=== PATIENT | male | born 1960 | race Caucasian/White ===

== ENCOUNTER → 2017-02-26 | Day surgery (SDC) | payer BC ==
[~2017-02-26] MED LIST: Lactated Ringers 1,000 ML IV SCH; Lidocaine 1%/Sod Bicarbonate in NS 8.4% 1 ML Syringe PRN; Propofol 200 MG/20 ML SDV ONE; Sodium Chloride 0.9% 10 ML Syringe FLUSH PRN
--- NOTE | 2017-02-26 08:19 | PCM.PREANE ---
Preanesthetic Assessment - Review of Systems General: No Symptoms Pulmonary: Other (History of sleep apnea, resolved. ) Cardiovascular: Other (Negative Stress Test, was told his chest pain was related to anxiety.) Gastrointestinal: Other (GERD) Neurological: Other (Restless Leg Syndrome) Other: Reports: Anxiety - Physical Assessment NPO Status Date: 02/25/17 NPO Status Time: 21:30 Pulse: 77 O2 Sat by Pulse Oximetry: 97 Respiratory Rate: 16 Blood Pressure: 141/89 Temperature: 36.1 C Weight: 126 kg ASA Class: 2 Mental Status: Alert & Oriented x3 Airway Class: Mallampati = 1 Dentition: Reports: Normal Dentition Thyro-Mental Finger Breadths: 3 Mouth Opening Finger Breadths: 3 ROM/Head Extension: Full Lungs: Clear to Auscultation, Normal Respiratory Effort Cardiovascular: Regular Rate, Regular Rhythm - Allergies Allergies/Adverse Reactions: Allergies Allergy/AdvReac Type Severity Reaction Status Date / Time amoxicillin Allergy Hives Verified 02/25/17 09:07 sulfamethoxazole Allergy Cannot Verified 02/25/17 09:07 [From Bactrim] Remember trimethoprim [From Bactrim] Allergy Cannot Verified 02/25/17 09:07 Remember - Acknowledgements Anesthesia Type Planned: MAC Pt an Appropriate Candidate for the Planned Anesthesia: Yes Alternatives and Risks of Anesthesia Discussed w Pt/Guardian: Yes Pt/Guardian Understands and Agrees with Anesthesia Plan: Yes PreAnesthesia Questionnaire HEENT History: Reports: None Cardiovascular History: Reports: Hypertension Respiratory History: Reports: Sleep Apnea Gastrointestinal History: Reports: GERD Genitourinary History: Reports: None 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 Musculoskeletal History: Reports: None Neurological History: Reports: None Psychiatric History: Reports: None Endocrine/Metabolic History: Reports: None Hematologic History: Reports: None Immunologic History: Reports: None Oncologic (Cancer) History: Reports: None Dermatologic History: Reports: None - Past Surgical History Head Surgeries/Procedures: Reports: None HEENT Surgical History: Reports: None Cardiovascular Surgical History: Reports: None Respiratory Surgical History: Reports: None GI Surgical History: Reports: Bariatric Procedure Male Surgical History: Reports: Vasectomy Endocrine Surgical History: Reports: None Neurological Surgical History: Reports: None Musculoskeletal Surgical History: Reports: None Dermatological Surgical History: Reports: None - SUBSTANCE USE Smoking Status *Q: Never Smoker Recreational Drug Use History: No - HOME MEDS Home Medications: Home Meds Cholecalciferol (Vitamin D3) [Vitamin D3] 400 units PO DAILY 02/25/17 [History] Cyanocobalamin (Vitamin B-12) [Vitamin B-12] 500 mcg SL DAILY 02/25/17 [History] Cyanocobalamin/FA/Pyridoxine [Folbee] 1 tab PO DAILY 02/25/17 [History] Lisinopril/Hydrochlorothiazide [Lisinopril-Hctz 20-25 mg Tab] 1 tab PO DAILY 03/02 [History] Multivitamin [Daily Nick] 1 tab PO DAILY 02/25/17 [History] - CURRENT (IN HOUSE) MEDS Current Meds: Current Medications Lactated Ringer's (Ringers, Lactated) 1,000 mls @ 125 mls/hr IV ASDIRECTED YANET Stop: 02/26/17 23:00 Lidocaine/Sodium Bicarbonate (Buffered Lidocaine 1% In Ns 8.4%) 0.25 ml .XX ONETIME PRN PRN Reason: Prior to IV Start Stop: 02/26/17 18:00 Sodium Chloride (Saline Flush) 10 ml FLUSH ASDIRECTED PRN PRN Reason: Keep Vein Open Stop: 02/26/17 18:00
--- NOTE | 2017-02-26 08:48 | PCM.OPNOTE ---
- General Post-Op/Procedure Note Date of Surgery/Procedure: 02/26/17 Operative Procedure(s): Esophagogastroduodenoscopy eith GE junction and gastric biopsies Findings: Endoscopic esophagitis but no marginal ulcer or gastritis, no stricturing at the anastomosis Pre Op Diagnosis: Dyspepsia status post gastric bypass Post-Op Diagnosis: Endoscopic esophagitis Anesthesia Technique: MAC, Moderate Sedation Primary Surgeon: Jeb Vasques Pathology: GE junction and gastric biopsies EBL in mLs: 0 Complications: None Condition: Good Free Text/Narrative:: After adequate IV sedation and analgesia was obtained the patient was placed on his left side with monitoring. Through a bite block a lubricated upper endoscope was inserted into the esophagus and advanced under direct vision to the stomach. The pouch from the gastric bypass was visualized. I carefully checked the anastomosis and there was no stricturing. On the distal side there was no marginal ulcer seen. The pouch was without ulcers or erosions. There was no gross inflammatory changes. There was some mild inflammation at the GE junction. I biopsied the GE junction and the body of the stomach for histologic evaluation. The body of the esophagus was unremarkable. The vocal cords were grossly normal. Outside Deliverer photographs were taken for the patient and for the medical record.
--- NOTE | 2017-02-26 08:50 | PCM48HPAN ---
Post Anesthesia Note - EVALUATION WITHIN 48HRS OF ANESTHETIC Vital Signs in Normal Range: Yes Patient Participated in Evaluation: Yes Respiratory Function Stable: Yes Airway Patent: Yes Cardiovascular Function Stable: Yes Hydration Status Stable: Yes Pain Control Satisfactory: Yes Nausea and Vomiting Control Satisfactory: Yes Mental Status Recovered: Yes
[2017-02-26 09:32] VITALS: BP 120/82
== END | disposition home or self-care (01) ==
LOC: JD.SDS 07:54
PROVIDERS: ATTEND Surgery
DX: K29.50 Unspecified chronic gastritis without bleeding (principal); K21.0 Gastro-esophageal reflux disease with esophagitis; I10 Essential (primary) hypertension; Z88.1 Allergy status to other antibiotic agents; Z88.2 Allergy status to sulfonamides; Z79.899 Other long term (current) drug therapy; Z98.84 Bariatric surgery status
CPT/HCPCS: 43239; J7120; 00740; J2704

== ENCOUNTER 2017-05-12 16:22 | Emergency (ER) | payer BC ==
[2017-05-12 16:39] VITALS: BP 125/84
--- NOTE | 2017-05-12 18:30 | EDM.PDOC ---
ED HPI GENERAL MEDICAL PROBLEM - General Chief Complaint: Lower Extremity Injury/Pain Stated Complaint: NUMBNESS AND PAIN IN R LEG ABOVE KNEE Time Seen by Provider: 05/12/17 16:37 Source of Information: Reports: Patient History Limitations: Reports: No Limitations - History of Present Illness INITIAL COMMENTS - FREE TEXT/NARRATIVE: The patient presents with numbness to the right anterior thigh. This started this weekend and today he got pain there. He has never had this before. He has no weakness. He had no injury. He was just playing with his grandchildren when this started. He has no fever, chills, cough, congestion or runny nose. He has no chest pain, shortness of breath, abdominal pain, nausea or vomiting. He does not sit for a long time at work. The pain is gone now but he has numbness to his thigh still. The patient has a history of a DVT years ago in the left leg after an injury. Onset: Gradual Duration: Day(s): Quality: Reports: Sharp Severity: Moderate Improves with: Reports: None Worsens with: Reports: None Associated Symptoms: Reports: No Other Symptoms - Related Data Allergies Allergy/AdvReac Type Severity Reaction Status Date / Time amoxicillin Allergy Hives Verified 05/12/17 16:33 sulfamethoxazole Allergy Cannot Verified 05/12/17 16:33 [From Bactrim] Remember trimethoprim [From Bactrim] Allergy Cannot Verified 05/12/17 16:33 Remember Home Meds: Home Meds Cholecalciferol (Vitamin D3) [Vitamin D3] 400 units PO DAILY 02/25/17 [History] Cyanocobalamin (Vitamin B-12) [Vitamin B-12] 500 mcg SL DAILY 02/25/17 [History] Cyanocobalamin/FA/Pyridoxine [Folbee] 1 tab PO DAILY 02/25/17 [History] Lisinopril/Hydrochlorothiazide [Lisinopril-Hctz 20-25 mg Tab] 1 tab PO DAILY 03/02 [History] Multivitamin [Daily Nick] 1 tab PO DAILY 02/25/17 [History] Past Medical History HEENT History: Reports: None Cardiovascular History: Reports: Hypertension Respiratory History: Reports: Sleep Apnea Gastrointestinal History: Reports: GERD Genitourinary History: Reports: None [employer] History: Reports: None Musculoskeletal History: Reports: None Neurological History: Reports: None Psychiatric History: Reports: None Endocrine/Metabolic History: Reports: None Hematologic History: Reports: None Immunologic History: Reports: None Oncologic (Cancer) History: Reports: None Dermatologic History: Reports: None - Past Surgical History Head Surgeries/Procedures: Reports: None HEENT Surgical History: Reports: None Cardiovascular Surgical History: Reports: None Respiratory Surgical History: Reports: None GI Surgical History: Reports: Bariatric Procedure Male Surgical History: Reports: Vasectomy Endocrine Surgical History: Reports: None Neurological Surgical History: Reports: None Musculoskeletal Surgical History: Reports: None Dermatological Surgical History: Reports: None Social & Family History - Tobacco Use Smoking Status *Q: Never Smoker - Caffeine Use Caffeine Use: Reports: Soda - Recreational Drug Use Recreational Drug Use: No Drug Use in Last 12 Months: No Review of Systems - Review of Systems Review Of Systems: See Below Constitutional: Reports: No Symptoms Eyes: Reports: No Symptoms Ears: Reports: No Symptoms Nose: Reports: No Symptoms Mouth/Throat: Reports: No Symptoms Respiratory: Reports: No Symptoms Cardiovascular: Reports: No Symptoms GI/Abdominal: Reports: No Symptoms Genitourinary: Reports: No Symptoms Musculoskeletal: Reports: Other (Tingling and numbness to the anterior right thigh) ED EXAM, GENERAL - Physical Exam Exam: See Below Exam Limited By: No Limitations General Appearance: Alert, No Apparent Distress Ears: Normal External Exam Nose: Normal Inspection Head: Atraumatic, Normocephalic Neck: Normal Inspection Respiratory/Chest: No Respiratory Distress, Lungs Clear, Normal Breath Sounds Cardiovascular: Regular Rate, Rhythm, No Edema, No Murmur GI/Abdominal: Soft, Non-Tender, No Organomegaly, No Mass Back Exam: Normal Inspection Extremities: Other (Numbness to the anterior right thigh. Good pulses distally. Equal strenght bilaterally to both legs.) Course - Vital Signs Last Recorded V/S: Last Vital Signs Temp 98.0 F 05/12/17 16:36 Pulse 76 05/12/17 16:36 Resp 16 05/12/17 16:36 BP 125/84 05/12/17 16:36 Pulse Ox 98 05/12/17 16:36 - Orders/Labs/Meds Orders: Active Orders 24 hr Category Date Time Status Cardiac Monitoring [RC] . DIRECTED Care 05/12/17 17:04 Active VL Duplex Lwr Ext Veins Ltd Rt [US] Stat Exams 05/12/17 17:05 Taken Labs: Laboratory Tests 05/12/17 05/12/17 05/12/17 Range/Units 17:27 17:27 17:27 WBC 5.38 (4.23-9.07) K/mm3 RBC 4.68 (4.63-6.08) M/mm3 Hgb 15.0 (13.7-17.5) gm/L Hct 44.1 (40.1-51.0) % MCV 94.2 H (79.0-92.2) fl MCH 32.1 (25.7-32.2) pg MCHC 34.0 (32.2-35.5) g/dl RDW Std Deviation 45.6 H (35.1-43.9) fL Plt Count 226 (163-337) K/mm3 MPV 10.5 (9.4-12.3) fl Neut % (Auto) 58.3 (34.0-67.9) % Lymph % (Auto) 32.2 (21.8-53.1) % [place] % (Auto) 8.6 (5.3-12.2) % Eos % (Auto) 0.7 L (0.8-7.0) Baso % (Auto) 0.2 (0.1-1.2) % Neut # (Auto) 3.14 (1.78-5.38) K/mm3 Lymph # (Auto) 1.73 (1.32-3.57) K/mm3 [place] # (Auto) 0.46 (0.30-0.82) K/mm3 Eos # (Auto) 0.04 (0.04-0.54) K/mm3 Baso # (Auto) 0.01 (0.01-0.08) K/mm3 D-Dimer, Quantitative 0.98 H (0.19-0.59) mg/L Sodium 140 (136-145) mEq/L Potassium 3.9 (3.5-5.1) mEq/L Chloride 105 (98-107) mEq/L Carbon Dioxide 25 (21-32) mEq/L Anion Gap 13.9 (5-15) BUN 21 H (7-18) mg/dL Creatinine 1.3 (0.7-1.3) mg/dL Est Cr Clr Drug Dosing 66.29 mL/min Estimated GFR (MDRD) 57 (>60) mL/min BUN/Creatinine Ratio 16.2 (14-18) Glucose 85 (74-106) mg/dL Calcium 9.0 (8.5-10.1) mg/dL Total Bilirubin 0.3 (0.2-1.0) mg/dL AST 16 (15-37) U/L ALT 19 (16-63) U/L Alkaline Phosphatase 95 (46-116) U/L Total Protein 7.0 (6.4-8.2) g/dl Albumin 3.6 (3.4-5.0) g/dl Globulin 3.4 gm/dL Albumin/Globulin Ratio 1.1 (1-2) - Re-Assessments/Exams Free Text/Narrative Re-Assessment/Exam: 05/12/17 18:30 I ordered some labs that looked good except his D-dimer was elevated. I ordered an US of his leg and it was negative for DVT. It appears he has meralgia paresthetica or lateral femoral cutaneous nerve entrapment. I will discharge him now. Departure - Departure Time of Disposition: 18:35 Disposition: Home, Self-Care 01 Condition: Good Clinical Impression: Meralgia paresthetica of right side - Discharge Information Referrals: Fara Manning, JOB SETTER [Primary Care Provider] - 1 Week Forms: ED Department Discharge Additional Instructions: Wear lose clothing around your waist. Avoid sitting for long periods of time. Take motrin or aleve for any pain. Follow up with Sosa Manning in 1 week. Please return if you are worse. - My Orders Last 24 Hours: My Active Orders 05/12/17 17:04 Cardiac Monitoring [RC] . DIRECTED 05/12/17 17:05 VL Duplex Lwr Ext Veins Ltd Rt [US] Stat - Assessment/Plan Last 24 Hours: My Active Orders 05/12/17 17:04 Cardiac Monitoring [RC] . DIRECTED 05/12/17 17:05 VL Duplex Lwr Ext Veins Ltd Rt [US] Stat
--- NOTE | 2017-05-13 07:05 | US ---
Right lower extremity deep venous ultrasound: Duplex and color flow imaging was obtained of the right common femoral, proximal greater saphenous, superficial femoral, popliteal, posterior tibial veins and peroneal veins. Left common femoral vein was also evaluated. Findings: Phasic flow not optimally seen within posterior tibial and peroneal veins but normal compression and augmentation seen within the posterior tibial and peroneal veins with no evidence of venous thrombosis. Other veins show normal phasic flow, augmentation and compression. Impression: 1. No evidence of deep venous thrombosis within the right lower extremity or within the left common femoral vein. Diagnostic code #1 Agree with preliminary report issued by [facility] ([facility] preliminary report dictated on 05/12/17, 7:09 PM Central Time)
== END 2017-05-12 18:43 | disposition home or self-care (01) ==
LOC: JD.ED 16:22
DX: G57.11 Meralgia paresthetica, right lower limb (principal); I10 Essential (primary) hypertension; Z88.1 Allergy status to other antibiotic agents; Z88.2 Allergy status to sulfonamides; Z79.899 Other long term (current) drug therapy; Z86.718 Personal history of other venous thrombosis and embolism
CPT/HCPCS: 36415; 80053; 85025; 85379; 93971-26-RT; 93971-RT; 99283; 99284-25

== ENCOUNTER 2018-08-17 06:50 | Day surgery (SDC) | payer BC ==
[2018-08-17] MEDS ORDERED: Lidocaine 1%/Sod Bicarbonate in NS 8.4% 1 ML Syringe IDERM PRN (07:00)
[2018-08-17] MEDS ORDERED: Sodium Chloride 0.9% 10 ML Syringe FLUSH PRN (07:00)
[2018-08-17] MEDS ORDERED: Lactated Ringers 1,000 ML IV SCH (07:00)
--- NOTE | 2018-08-17 07:43 | PCM.PREANE ---
Preanesthetic Assessment - Procedure Proposed Procedure: colonoscopy - Anesthesia/Transfusion/Family Hx Anesthesia History: Prior Anesthesia Without Reaction Family History of Anesthesia Reaction: No Transfusion History: No Prior Transfusion(s) Intubation History: Unknown - Review of Systems General: No Symptoms Pulmonary: No Symptoms Cardiovascular: Other Gastrointestinal: No Symptoms Neurological: No Symptoms Other: Reports: None - Physical Assessment NPO Status Date: 08/17/18 NPO Status Time: 19:30 Pulse: 71 O2 Sat by Pulse Oximetry: 96 Respiratory Rate: 16 Blood Pressure: 119/86 Temperature: 37.1 C Height: 1.78 m Weight: 124.738 kg ASA Class: 2 Mental Status: Alert & Oriented x3 Airway Class: Mallampati = 1 Dentition: Reports: Normal Dentition Thyro-Mental Finger Breadths: 3 Mouth Opening Finger Breadths: 5 ROM/Head Extension: Full Lungs: Clear to Auscultation, Normal Respiratory Effort Cardiovascular: Regular Rate, Regular Rhythm - Allergies Allergies/Adverse Reactions: Allergies Allergy/AdvReac Type Severity Reaction Status Date / Time amoxicillin Allergy Hives Verified 08/14/18 14:07 sulfamethoxazole Allergy Cannot Verified 08/14/18 14:07 [From Bactrim] Remember trimethoprim [From Bactrim] Allergy Cannot Verified 08/14/18 14:07 Remember - Blood Blood Available: No - Anesthesia Plan Pre-Op Medication Ordered: None - Acknowledgements Anesthesia Type Planned: MAC Pt an Appropriate Candidate for the Planned Anesthesia: Yes Alternatives and Risks of Anesthesia Discussed w Pt/Guardian: Yes Pt/Guardian Understands and Agrees with Anesthesia Plan: Yes PreAnesthesia Questionnaire HEENT History: Reports: None Cardiovascular History: Reports: Blood Clots/VTE/DVT, Heart Murmur, Hypertension Respiratory History: Reports: Sleep Apnea Gastrointestinal History: Reports: GERD, Other (See Below) Other Gastrointestinal History: esophagitis, abdominal pain, esophageal strictures Genitourinary History: Reports: None 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 Musculoskeletal History: Reports: Other (See Below) Other Musculoskeletal History: restless leg syndrome Neurological History: Reports: None, Other (See Below) Other Neuro History: meralgia paresthetica Psychiatric History: Reports: None Endocrine/Metabolic History: Reports: None, Obesity/BMI 30+ Hematologic History: Reports: None Immunologic History: Reports: None Oncologic (Cancer) History: Reports: None Dermatologic History: Reports: None - Past Surgical History Head Surgeries/Procedures: Reports: None HEENT Surgical History: Reports: LASIK, Naso-Sinus Surgery Cardiovascular Surgical History: Reports: None Respiratory Surgical History: Reports: None GI Surgical History: Reports: Bariatric Procedure, EGD Male Surgical History: Reports: Vasectomy Endocrine Surgical History: Reports: None Neurological Surgical History: Reports: None Musculoskeletal Surgical History: Reports: None Oncologic Surgical History: Reports: None Dermatological Surgical History: Reports: None - SUBSTANCE USE Smoking Status *Q: Never Smoker Recreational Drug Use History: No - HOME MEDS Home Medications: Home Meds Cholecalciferol (Vitamin D3) [Vitamin D3] 400 units PO DAILY 02/25/17 [History] Cyanocobalamin/Folic AC/Vit B6 [Folbee] 1 tab PO DAILY 02/25/17 [History] Lisinopril/Hydrochlorothiazide [Lisinopril-Hctz 20-25 mg Tab] 1 tab PO DAILY 03/02 [History] Multivitamin [Daily Nick] 1 tab PO DAILY 02/25/17 [History] Famotidine 20 mg PO DAILY 08/14/18 [History] Vitamin B Complex [B Complex] 1 tab PO DAILY 08/14/18 [History] - CURRENT (IN HOUSE) MEDS Current Meds: Current Medications Lactated Ringer's (Ringers, Lactated) 1,000 mls @ 125 mls/hr IV ASDIRECTED YANET Stop: 08/17/18 23:00 Lidocaine/Sodium Bicarbonate (Buffered Lidocaine 1% In Ns 8.4%) 0.25 ml IDERM ONETIME PRN PRN Reason: Prior to IV Start Stop: 08/17/18 18:00 Sodium Chloride (Saline Flush) 10 ml FLUSH ASDIRECTED PRN PRN Reason: Keep Vein Open Stop: 08/17/18 18:00
[2018-08-17] MEDS ORDERED: Propofol 200 MG/20 ML SDV ONE (08:12)
[2018-08-17] MEDS ORDERED: Midazolam 1 MG/ML 2 ML SDV ONE (08:13)
[2018-08-17] MEDS ORDERED: Lidocaine 1% 4 ML ONE (08:14)
--- NOTE | 2018-08-17 08:45 | PCM.OPNOTE ---
- General Post-Op/Procedure Note Date of Surgery/Procedure: 08/17/18 Operative Procedure(s): colonoscopy to cecum Pre Op Diagnosis: screening Post-Op Diagnosis: Same Anesthesia Technique: MAC Primary Surgeon: Librado Richey EBL in mLs: 0 Complications: None Condition: Good
--- NOTE | 2018-08-17 08:49 | PCM48HPAN ---
Post Anesthesia Note - EVALUATION WITHIN 48HRS OF ANESTHETIC Vital Signs in Normal Range: Yes Patient Participated in Evaluation: Yes Respiratory Function Stable: Yes Airway Patent: Yes Cardiovascular Function Stable: Yes Hydration Status Stable: Yes Pain Control Satisfactory: Yes Nausea and Vomiting Control Satisfactory: Yes Mental Status Recovered: Yes Pulse Rate: 76 SaO2: 97 Resp Rate: 16 Temperature: 37.1 C Blood Pressure: 119/86
[2018-08-17 09:07] VITALS: BP 129/96
--- NOTE | 2018-08-18 06:43 | OR ---
DATE OF OPERATION: 08/17/2018 SURGEON: Librado Richey MD PREOPERATIVE DIAGNOSIS: Screening colonoscopy for cancer. POSTOPERATIVE DIAGNOSIS: Screening colonoscopy for cancer. OPERATION PERFORMED: Colonoscopy to cecum. FINDINGS: Normal study. RECOMMENDATION: Repeat colonoscopy in 10 years. ANESTHESIA: Procedure done under IV sedation. DESCRIPTION OF PROCEDURE: The patient was taken to the endoscopy room, placed in a supine position, connected to monitoring equipment, given IV sedation, placed in the left lateral position. The perianal area was inspected and was normal. Rectal exam showed good sphincter tone. A video Olympus colonoscope was then introduced into the rectum and threaded up without problem to the cecum, where the appendicular orifice and ileocecal valve were noted. The scope was slowly withdrawn showing the cecum, ascending colon, transverse colon, descending colon, sigmoid colon, and rectum. [place] Cleansing Score was grade A. The patient tolerated the procedure and sent to the recovery room in a stable condition and will be followed up as needed in the clinic. ESTIMATED BLOOD LOSS: MMODAL /[id number]
== END 2018-08-17 09:15 | disposition home or self-care (01) ==
LOC: JD.SDS 06:50
PROVIDERS: ATTEND Surgery
DX: R10.9 Unspecified abdominal pain (principal); G89.29 Other chronic pain; I10 Essential (primary) hypertension; K21.9 Gastro-esophageal reflux disease without esophagitis; E66.9 Obesity, unspecified; Z68.41 Body mass index [BMI] 40.0-44.9, adult; Z87.891 Personal history of nicotine dependence; Z95.818 Presence of other cardiac implants and grafts
CPT/HCPCS: 45378; J2001; J2250; J2704; J7120; 00812

== ENCOUNTER 2021-03-19 10:19 | Emergency (ER) | payer BC ==
[2021-03-19] MEDS ORDERED: Sodium Chloride 0.9% 10 ML Syringe FLUSH PRN ×2 (10:42→12:07)
[2021-03-19] MEDS ORDERED: Aspirin 81 MG Tab.Chew PO ONE (10:42)
--- NOTE | 2021-03-19 10:49 | EDM.PDOC ---
ED HPI GENERAL MEDICAL PROBLEM - General Chief Complaint: Chest Pain Stated Complaint: CHEST PAIN Time Seen by Provider: 03/19/21 10:31 Source of Information: Reports: Patient History Limitations: Reports: No Limitations - History of Present Illness INITIAL COMMENTS - FREE TEXT/NARRATIVE: The patient presents with right sided chest pain and shortness of breath. This started last week Friday after he lifted a small boat. It got better for a couple days and now he has more pain again for a couple of days. He has shortness of breath with it and he feels the pain with every breath. He has no fever or chills. He does have a slight cough at times. He has no nausea or vomiting. He has no abdominal pain. He has no history of heart problems. Ten years ago he had a clean angiogram and he was told to reduce his stress. He has no history of hypertension or hypercholesterolemia or diabetes. He does not smoke. He may have been exposed to a family member that was sick but did not get tested for COVID. Onset: Gradual Duration: Day(s): Location: Reports: Chest Quality: Reports: Sharp Severity: Moderate Worsens with: Reports: Other (Breathing) Associated Symptoms: Reports: Chest Pain, Shortness of Breath. Denies: Cough, Fever/Chills, Nausea/Vomiting Left Chest Pain Score (Numeric/FACES): 10 - Related Data Allergies Allergy/AdvReac Type Severity Reaction Status Date / Time amoxicillin Allergy Hives Verified 03/19/21 10:32 sulfamethoxazole Allergy Cannot Verified 03/19/21 10:32 [From Bactrim] Remember trimethoprim [From Bactrim] Allergy Cannot Verified 03/19/21 10:32 Remember Home Meds: Home Meds Cholecalciferol (Vitamin D3) [Vitamin D3] 400 units PO DAILY 02/25/17 [History] Cyanocobalamin/Folic AC/Vit B6 [Folbee] 1 tab PO DAILY 02/25/17 [History] Lisinopril/Hydrochlorothiazide [Lisinopril-Hctz 20-25 mg Tab] 1 tab PO DAILY 02/25/17 [History] Multivitamin [Daily Nick] 1 tab PO DAILY 02/25/17 [History] Famotidine 20 mg PO DAILY 08/14/18 [History] Vitamin B Complex [B Complex] 1 tab PO DAILY 08/14/18 [History] Apixaban [Eliquis] 10 mg PO BID #60 tablet 03/19/21 [Rx] Past Medical History HEENT History: Reports: None Cardiovascular History: Reports: Blood Clots/VTE/DVT, Heart Murmur, Hypertension Respiratory History: Reports: Sleep Apnea Gastrointestinal History: Reports: GERD, Other (See Below) Other Gastrointestinal History: esophagitis, abdominal pain, esophageal strictures Genitourinary History: Reports: None 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 Musculoskeletal History: Reports: Other (See Below) Other Musculoskeletal History: restless leg syndrome Neurological History: Reports: None, Other (See Below) Other Neuro History: meralgia paresthetica Psychiatric History: Reports: None Endocrine/Metabolic History: Reports: None, Obesity/BMI 30+ Hematologic History: Reports: None Immunologic History: Reports: None Oncologic (Cancer) History: Reports: None Dermatologic History: Reports: None - Past Surgical History Head Surgeries/Procedures: Reports: None HEENT Surgical History: Reports: LASIK, Naso-Sinus Surgery Cardiovascular Surgical History: Reports: None Respiratory Surgical History: Reports: None GI Surgical History: Reports: Bariatric Procedure, EGD Male Surgical History: Reports: Vasectomy Endocrine Surgical History: Reports: None Neurological Surgical History: Reports: None Musculoskeletal Surgical History: Reports: None Oncologic Surgical History: Reports: None Dermatological Surgical History: Reports: None Social & Family History - Caffeine Use Caffeine Use: Reports: Soda ED ROS GENERAL - Review of Systems Review Of Systems: See Below Constitutional: Reports: No Symptoms HEENT: Reports: No Symptoms Respiratory: Reports: Shortness of Breath, Cough Cardiovascular: Reports: Chest Pain Endocrine: Reports: No Symptoms GI/Abdominal: Reports: No Symptoms : Reports: No Symptoms Musculoskeletal: Reports: No Symptoms Skin: Reports: No Symptoms Neurological: Reports: No Symptoms ED EXAM, GENERAL - Physical Exam Exam: See Below Exam Limited By: No Limitations General Appearance: Alert, No Apparent Distress Ears: Normal External Exam Nose: Normal Inspection Head: Atraumatic, Normocephalic Neck: Normal Inspection Respiratory/Chest: No Respiratory Distress, Lungs Clear, Normal Breath Sounds Cardiovascular: Regular Rate, Rhythm, No Edema, No Murmur, No Rub GI/Abdominal: Soft, Non-Tender, No Organomegaly Back Exam: Normal Inspection Extremities: Normal Inspection #1 Interpretation EKG Date: 03/19/21 Time: 10:29 Rhythm: NSR Rate (Beats/Min): 90 Leon: Normal P-Wave: Present QRS: Normal ST-T: Normal QT: Normal Course - Vital Signs Last Recorded V/S: Last Vital Signs Temp 96.8 F L 03/19/21 10:29 Pulse 91 03/19/21 10:29 Resp 18 03/19/21 10:29 BP 159/98 H 03/19/21 10:29 Pulse Ox 100 03/19/21 10:29 - Orders/Labs/Meds Orders: Active Orders 24 hr Category Date Time Status Cardiac Monitoring [RC] . DIRECTED Care 03/19/21 10:42 Active Peripheral IV Care [RC] . DIRECTED Care 03/19/21 10:43 Active Apixaban [Eliquis] Med 03/19/21 14:31 Once 10 mg PO ONETIME ONE Sodium Chloride 0.9% [Normal Saline] 100 ml Med 03/19/21 12:15 Active IV ASDIRECTED Sodium Chloride 0.9% [Saline Flush] Med 03/19/21 10:42 Active 10 ml FLUSH ASDIRECTED PRN Sodium Chloride 0.9% [Saline Flush] Med 03/19/21 12:07 Active 10 ml FLUSH ONETIME PRN Peripheral IV Insertion Adult [OM.PC] Stat Oth 03/19/21 10:42 Ordered Medication Orders Sodium Chloride (Normal Saline) 100 mls @ 75 mls/hr IV ASDIRECTED YANET Last Admin: 03/19/21 12:19 Dose: 75 mls/hr Documented by: OLI Sodium Chloride (Sodium Chloride 0.9% 10 Ml Syringe) 10 ml FLUSH ASDIRECTED PRN PRN Reason: Keep Vein Open Last Admin: 03/19/21 10:59 Dose: 10 ml Documented by: ANANYA Sodium Chloride (Sodium Chloride 0.9% 10 Ml Syringe) 10 ml FLUSH ONETIME PRN PRN Reason: IV FLUSH Last Admin: 03/19/21 12:19 Dose: 10 ml Documented by: OLI Labs: Laboratory Tests 03/19/21 03/19/21 03/19/21 Range/Units 10:56 11:00 11:00 WBC 7.56 (4.23-9.07) K/mm3 RBC 4.57 L (4.63-6.08) M/mm3 Hgb 14.6 (13.7-17.5) gm/dl Hct 44.1 (40.1-51.0) % MCV 96.5 H (79.0-92.2) fl MCH 31.9 (25.7-32.2) pg MCHC 33.1 (32.2-35.5) g/dl RDW Std Deviation 44.7 H (35.1-43.9) fL Plt Count 346 H D (163-337) K/mm3 MPV 9.7 (9.4-12.3) fl Neut % (Auto) 77.3 H (34.0-67.9) % Lymph % (Auto) 14.4 L (21.8-53.1) % [place] % (Auto) 7.5 (5.3-12.2) % Eos % (Auto) 0.7 L (0.8-7.0) Baso % (Auto) 0.1 (0.1-1.2) % Neut # (Auto) 5.84 H (1.78-5.38) K/mm3 Lymph # (Auto) 1.09 L (1.32-3.57) K/mm3 [place] # (Auto) 0.57 (0.30-0.82) K/mm3 Eos # (Auto) 0.05 (0.04-0.54) K/mm3 Baso # (Auto) 0.01 (0.01-0.08) K/mm3 D-Dimer, Quantitative 1.56 H (0.19-0.50) mg/L Sodium 139 (136-145) mEq/L Potassium 3.9 (3.5-5.1) mEq/L Chloride 104 (98-107) mEq/L Carbon Dioxide 25 (21-32) mEq/L Anion Gap 13.9 (5-15) BUN 11 (7-18) mg/dL Creatinine 1.0 (0.7-1.3) mg/dL Est Cr Clr Drug Dosing 84.71 mL/min Estimated GFR (MDRD) > 60 (>60) mL/min BUN/Creatinine Ratio 11.0 L (14-18) Glucose 91 (70-99) mg/dL Calcium 8.8 (8.5-10.1) mg/dL Total Bilirubin 0.9 (0.2-1.0) mg/dL AST 14 L (15-37) U/L ALT 28 (16-63) U/L Alkaline Phosphatase 118 H (46-116) U/L Troponin I < 0.017 (0.00-0.056) ng/mL Total Protein 7.5 (6.4-8.2) g/dl Albumin 3.2 L (3.4-5.0) g/dl Globulin 4.3 gm/dL Albumin/Globulin Ratio 0.7 L (1-2) Influenza Type A RNA (NEGATIVE) Influenza Type B RNA (NEGATIVE) SARS-CoV-2 RNA (LUIS) (NEGATIVE) 03/19/21 Range/Units 11:00 WBC (4.23-9.07) K/mm3 RBC (4.63-6.08) M/mm3 Hgb (13.7-17.5) gm/dl Hct (40.1-51.0) % MCV (79.0-92.2) fl MCH (25.7-32.2) pg MCHC (32.2-35.5) g/dl RDW Std Deviation (35.1-43.9) fL Plt Count (163-337) K/mm3 MPV (9.4-12.3) fl Neut % (Auto) (34.0-67.9) % Lymph % (Auto) (21.8-53.1) % [place] % (Auto) (5.3-12.2) % Eos % (Auto) (0.8-7.0) Baso % (Auto) (0.1-1.2) % Neut # (Auto) (1.78-5.38) K/mm3 Lymph # (Auto) (1.32-3.57) K/mm3 [place] # (Auto) (0.30-0.82) K/mm3 Eos # (Auto) (0.04-0.54) K/mm3 Baso # (Auto) (0.01-0.08) K/mm3 D-Dimer, Quantitative (0.19-0.50) mg/L Sodium (136-145) mEq/L Potassium (3.5-5.1) mEq/L Chloride (98-107) mEq/L Carbon Dioxide (21-32) mEq/L Anion Gap (5-15) BUN (7-18) mg/dL Creatinine (0.7-1.3) mg/dL Est Cr Clr Drug Dosing mL/min Estimated GFR (MDRD) (>60) mL/min BUN/Creatinine Ratio (14-18) Glucose (70-99) mg/dL Calcium (8.5-10.1) mg/dL Total Bilirubin (0.2-1.0) mg/dL AST (15-37) U/L ALT (16-63) U/L Alkaline Phosphatase (46-116) U/L Troponin I (0.00-0.056) ng/mL Total Protein (6.4-8.2) g/dl Albumin (3.4-5.0) g/dl Globulin gm/dL Albumin/Globulin Ratio (1-2) Influenza Type A RNA Negative (NEGATIVE) Influenza Type B RNA Negative (NEGATIVE) SARS-CoV-2 RNA (LUIS) Negative (NEGATIVE) Meds: Medications Generic Name Dose Route Start Last Admin Trade Name Freq PRN Reason Stop Dose Admin Sodium Chloride 100 mls @ 75 mls/hr 03/19/21 12:15 03/19/21 12:19 Normal Saline IV 75 mls/hr ASDIRECTED YANET Administration Sodium Chloride 10 ml 03/19/21 10:42 03/19/21 10:59 Sodium Chloride 0.9% 10 Ml Syringe FLUSH 10 ml ASDIRECTED PRN Administration Keep Vein Open Sodium Chloride 10 ml 03/19/21 12:07 03/19/21 12:19 Sodium Chloride 0.9% 10 Ml Syringe FLUSH 10 ml ONETIME PRN Administration IV FLUSH Discontinued Medications Generic Name Dose Route Start Last Admin Trade Name Yoahna PRN Reason Stop Dose Admin Aspirin 324 mg 03/19/21 10:42 03/19/21 10:59 Aspirin 81 Mg Tab.Chew PO 03/19/21 10:43 324 mg ONETIME ONE Administration Iopamidol 100 ml 03/19/21 12:07 03/19/21 12:19 Iopamidol 755 Mg/Ml 100 Ml Bottle IVPUSH 03/19/21 12:08 100 ml ONETIME ONE Administration - Re-Assessments/Exams Free Text/Narrative Re-Assessment/Exam: 03/19/21 10:49 I ordered an IV saline lock, aspirin, EKG, CXR and labs. 03/19/21 12:01 His EKG shows a NSR with no acute changes. His CXR looks good. His CBC looks good. His D-dimer was elevated at 1.56. His alk phos was elevated at 118. His troponin is normal. His COVID and influenza are negative. I have ordered a CT angio of his chest. 03/19/21 14:[address] shows acute appearing bilateral pulmonary emboli. No evidence of pulmonary infarction or right heart strain. I have ordered eliquis 10mg now. I will give him a prescription for more. Departure - Departure Time of Disposition: 14:35 Disposition: Home, Self-Care 01 Condition: Good Clinical Impression: Pulmonary embolism Qualifiers: Pulmonary embolism type: other Chronicity: acute Acute cor pulmonale presence: unspecified Qualified Code(s): I26.99 - Other pulmonary embolism without acute cor pulmonale Prescriptions: Apixaban [Eliquis] 10 mg PO BID #60 tablet Referrals: Fara Manning RESEARCH GROUP DIRECTOR [Primary Care Provider] - 1 Week Forms: ED Department Discharge, ED Return to Work/School Form Additional Instructions: Take the eliquis 2 pills 2 times per day for 7 days and then 1 pill 2 times per day after. Take tylenol as needed for pain. Follow up with your provider within a week. Please return if you are worse. Sepsis Event Note (ED) - Evaluation Sepsis Screening Result: No Definite Risk - Focused Exam Vital Signs: Vital Signs Temp Pulse Resp BP Pulse Ox 03/19/21 10:29 96.8 F L 91 18 159/98 H 100 - My Orders Last 24 Hours: My Active Orders 03/19/21 10:42 Cardiac Monitoring [RC] . DIRECTED Sodium Chloride 0.9% [Saline Flush] 10 ml FLUSH ASDIRECTED PRN Peripheral IV Insertion Adult [OM.PC] Stat 03/19/21 10:43 Peripheral IV Care [RC] . DIRECTED 03/19/21 12:07 Sodium Chloride 0.9% [Saline Flush] 10 ml FLUSH ONETIME PRN 03/19/21 12:15 Sodium Chloride 0.9% [Normal Saline] 100 ml IV ASDIRECTED 03/19/21 14:31 Apixaban [Eliquis] 10 mg PO ONETIME ONE - Assessment/Plan Last 24 Hours: My Active Orders 03/19/21 10:42 Cardiac Monitoring [RC] . DIRECTED Sodium Chloride 0.9% [Saline Flush] 10 ml FLUSH ASDIRECTED PRN Peripheral IV Insertion Adult [OM.PC] Stat 03/19/21 10:43 Peripheral IV Care [RC] . DIRECTED 03/19/21 12:07 Sodium Chloride 0.9% [Saline Flush] 10 ml FLUSH ONETIME PRN 03/19/21 12:15 Sodium Chloride 0.9% [Normal Saline] 100 ml IV ASDIRECTED 03/19/21 14:31 Apixaban [Eliquis] 10 mg PO ONETIME ONE
[2021-03-19 11:39] LABS: CORONAVIRUS COVID-19 NAA NEGATIVE (NEGATIVE)
[2021-03-19] MEDS ORDERED: Iopamidol 755 Mg/ML 100 ML Bottle IVPUSH ONE (12:07)
[2021-03-19] MEDS ORDERED: Sodium Chloride 0.9% 100 ML IV SCH (12:15)
--- NOTE | 2021-03-19 13:27 | CT ---
EXAM: CT ANGIO PULMONARY LOCATION: [facility] [place] DATE/TIME: 03/19/2021 12:06 PM INDICATION: Rt sided chest pain elevated d dimer ? pe COMPARISON: Chest radiograph from earlier today and chest CT from 11/20/2012 TECHNIQUE: CT chest pulmonary angiogram during arterial phase injection of IV contrast. Multiplanar reformats and MIP reconstructions were performed. Dose reduction techniques were used. CONTRAST: 100 mL [id number] FINDINGS: ANGIOGRAM CHEST: Acute-appearing pulmonary emboli in segmental and subsegmental arterial branches in all lobes of both lungs. No saddle emboli. Thoracic aorta is negative for dissection. No evidence of right heart strain. RV: LV ratio = 0.8. LUNGS AND PLEURA: Small right pleural effusion with passive atelectasis in the right lung. Stable benign intrapulmonary lymph nodes in subpleural positions in both lungs. MEDIASTINUM/AXILLAE: Small sliding-type esophageal hiatal hernia. CORONARY ARTERY CALCIFICATION: Mild calcified three-vessel coronary atherosclerosis. UPPER ABDOMEN: Postoperative change in the stomach. Left kidney cyst, requiring no follow-up. Left hepatectomy. MUSCULOSKELETAL: Mild degenerative change in the spine. IMPRESSION: Acute-appearing bilateral pulmonary emboli. No evidence of pulmonary infarction or right heart strain. Discussed by telephone with Dr. Gregory at 1:50 PM on 03/19/2021. SIGNED BY: Vance Campbell MD 03/19/2021 1:51 PM ADRIANE
--- NOTE | 2021-03-19 13:30 | CR ---
EXAM: XR CHEST 1 VIEW LOCATION: [facility] [employer] DATE/TIME: 03/19/2021 10:45 AM INDICATION: Chest pain COMPARISON: None. IMPRESSION: There is airspace opacity at the right lung base consistent with atelectasis or a small area of consolidation. The left lung is clear. The heart size and pulmonary vascularity are normal. No pneumothorax. NOTE: ABNORMAL REPORT THE DICTATION ABOVE DESCRIBES AN ABNORMALITY FOR WHICH FOLLOW-UP IS NEEDED. SIGNED BY: Vance Orozco MD 03/19/2021 12:54 PM ADRIANE
[2021-03-19] MEDS ORDERED: Apixaban 5 MG Tab PO ONE (14:31)
[2021-03-19 14:48] VITALS: BP 156/98; PULSE 95
== END 2021-03-19 14:47 | disposition home or self-care (01) ==
LOC: JD.ED 10:19
DX: I26.99 Other pulmonary embolism without acute cor pulmonale (principal); K21.9 Gastro-esophageal reflux disease without esophagitis; E66.9 Obesity, unspecified; Z68.39 Body mass index [BMI] 39.0-39.9, adult; Z79.899 Other long term (current) drug therapy; Z79.01 Long term (current) use of anticoagulants; Z88.0 Allergy status to penicillin; Z88.1 Allergy status to other antibiotic agents; Z20.822 Contact with and (suspected) exposure to COVID-19
CPT/HCPCS: 0240U; 36415; 71045; 71275; 80053; 84484; 85025; 85379; 93005; 99285; A9270; Q9967

== ENCOUNTER 2025-01-18 08:42 | Inpatient (IN) | payer BC, OTHER ==
[2025-01-18] MEDS ORDERED: Sodium Chloride 0.9% 10 ML Syringe FLUSH PRN (09:16)
[2025-01-18 09:29] LABS: BASOPHILS ABSOLUTE AUTO 0.0 K/mm3 (0.0-0.2); BASOPHILS PERCENT AUTO 0.3 % (0.0-1.0); EOSINOPHILS ABSOLUTE AUTO 0.0 K/mm3 (0.0-0.4); EOSINOPHILS PERCENT AUTO 0.0 % (0.0-6.0); IMMATURE GRAN ABSOLUTE AUTO 0.06 K/mm3 (0.00-0.05); IMMATURE GRAN PERCENT AUTO 0.8 % (0.0-0.4); LYMPHOCYTES ABSOLUTE AUTO 0.9 K/mm3 (1.0-4.8); LYMPHOCYTES PERCENT AUTO 11.1 % (24.0-44.0); MEAN PLATELET VOLUME 9.8 fl (9.4-12.4); MONOCYTES ABSOLUTE AUTO 0.2 K/mm3 (0.0-0.8); MONOCYTES PERCENT AUTO 2.6 % (0.0-8.0); NEUTROPHILS ABSOLUTE AUTO 6.6 K/mm3 (1.8-7.7); NEUTROPHILS PERCENT AUTO 85.2 % (41.0-71.0); NRBC ABSOLUTE 0.00 (0.00-0.02); NRBC PERCENT 0.0 % (0.0-0.2); PLATELET COUNT,PLT 284 K/mm3 (150-400); RED BLOOD CELL COUNT 4.55 M/mm3 (4.52-5.90); WHITE BLOOD CELL COUNT,WBC 7.72 K/mm3 (3.9-11.3)
[2025-01-18 09:55] LABS: A/G RATIO 1.1 (1-2); ALANINE AMINOTRANSFERASE,ALT 42.0 U/L (16-63); ASPARTATE AMNIOTRANSFERASE,AST 27.0 U/L (15-37); BILIRUBIN TOTAL 0.9 mg/dL (0.2-1.0); BLOOD UREA NITROGEN,BUN 24.0 mg/dL (7-18); CARBON DIOXIDE,CO2 23.0 mEq/L (21-32); CHLORIDE,CL 107.0 mEq/L (98-107); CREATININE 1.5 mg/dL (0.7-1.3); EST CRCL DRUG DOSING (CG) 52.05 mL/min; ESTIMATED GFR 52.0 mL/min (>60); GLUCOSE RANDOM 134.0 mg/dL (70-99); POTASSIUM,K 3.6 mEq/L (3.5-5.1); PROTEIN TOTAL,TP 6.8 g/dl (6.4-8.2); SODIUM,NA 142.0 mEq/L (136-145)
[2025-01-18 09:56] LABS: TROPONIN I HIGH SENSITIVITY 83.0 pg/mL (<=76)
[2025-01-18] MEDS: Furosemide 40 MG/4 ML VIAL IVPUSH ONE ×2 (13:01→20:34)
[2025-01-18 14:43] LABS: APPEARANCE,URINE CLEAR (Clear); GLUCOSE,URINE NEGATIVE (Negative); OCCULT BLOOD,URINE NEGATIVE (Negative)
[2025-01-18 14:49] LABS: EPITHELIAL CELLS,URINE 0-5 /hpf (0-5)
[2025-01-19 04:52] LABS: BASOPHILS ABSOLUTE AUTO 0.1 K/mm3 (0.0-0.2); BASOPHILS PERCENT AUTO 0.5 % (0.0-1.0); EOSINOPHILS ABSOLUTE AUTO 0.0 K/mm3 (0.0-0.4); EOSINOPHILS PERCENT AUTO 0.3 % (0.0-6.0); IMMATURE GRAN ABSOLUTE AUTO 0.03 K/mm3 (0.00-0.05); IMMATURE GRAN PERCENT AUTO 0.3 % (0.0-0.4); LYMPHOCYTES ABSOLUTE AUTO 3.2 K/mm3 (1.0-4.8); LYMPHOCYTES PERCENT AUTO 31.4 % (24.0-44.0); MEAN PLATELET VOLUME 10.2 fl (9.4-12.4); MONOCYTES ABSOLUTE AUTO 0.8 K/mm3 (0.0-0.8); MONOCYTES PERCENT AUTO 8.3 % (0.0-8.0); NEUTROPHILS ABSOLUTE AUTO 6.0 K/mm3 (1.8-7.7); NEUTROPHILS PERCENT AUTO 59.2 % (41.0-71.0); NRBC ABSOLUTE 0.00 (0.00-0.02); NRBC PERCENT 0.0 % (0.0-0.2); PLATELET COUNT,PLT 293 K/mm3 (150-400); RED BLOOD CELL COUNT 4.82 M/mm3 (4.52-5.90); WHITE BLOOD CELL COUNT,WBC 10.10 K/mm3 (3.9-11.3)
[2025-01-19 05:35] LABS: A/G RATIO 1.0 (1-2); ALANINE AMINOTRANSFERASE,ALT 42.0 U/L (16-63); ASPARTATE AMNIOTRANSFERASE,AST 28.0 U/L (15-37); BILIRUBIN TOTAL 0.8 mg/dL (0.2-1.0); BLOOD UREA NITROGEN,BUN 22.0 mg/dL (7-18); CARBON DIOXIDE,CO2 27.0 mEq/L (21-32); CHLORIDE,CL 107.0 mEq/L (98-107); CREATININE 1.9 mg/dL (0.7-1.3); EST CRCL DRUG DOSING (CG) 41.09 mL/min; ESTIMATED GFR 39.0 mL/min (>60); GLUCOSE RANDOM 88.0 mg/dL (70-99); POTASSIUM,K 3.7 mEq/L (3.5-5.1); PROTEIN TOTAL,TP 6.6 g/dl (6.4-8.2); SODIUM,NA 146.0 mEq/L (136-145)
[2025-01-19 13:00] VITALS: BP 108/77; PULSE 113
== END 2025-01-19 13:04 | disposition home or self-care (01) | DRG 291 ==
LOC: JD.ED 08:42 → JD.MS 12:57
PROVIDERS: ADMIT Family Medicine; ATTEND Family Medicine
DX: I11.0 Hypertensive heart disease with heart failure (principal); I50.31 Acute diastolic (congestive) heart failure; I82.4Z2 Acute embolism and thrombosis of unspecified deep veins of left distal lower extremity; Z68.41 Body mass index [BMI] 40.0-44.9, adult; I50.9 Heart failure, unspecified; G25.81 Restless legs syndrome; G47.30 Sleep apnea, unspecified; K21.9 Gastro-esophageal reflux disease without esophagitis; E66.9 Obesity, unspecified; R79.89 Other specified abnormal findings of blood chemistry; Z86.711 Personal history of pulmonary embolism; Z88.1 Allergy status to other antibiotic agents; Z88.2 Allergy status to sulfonamides; Z88.8 Allergy status to other drugs, medicaments and biological substances; Z79.01 Long term (current) use of anticoagulants; Z79.899 Other long term (current) drug therapy; Z87.01 Personal history of pneumonia (recurrent); Z86.16 Personal history of COVID-19; Z98.890 Other specified postprocedural states; Z98.52 Vasectomy status; Z98.84 Bariatric surgery status
CPT/HCPCS: 36415; 71045; 71045-26; 80053; 81001; 83690; 83880; 84484; 85025; 87428-QW; 93005; 93010; 93306; 93970; 93970-26; 99285; A9270-GY; J1938